=== PATIENT | female | born 1955 | race Caucasian/White ===

== ENCOUNTER 2025-02-03 12:19 | Emergency (ER) | payer OTHER ==
[~2025-02-03] VITALS: Ht 165.1 cm; Wt 91.2 kg
[~2025-02-03 12:19] MED LIST: ATENOLOL-CHLOR1 EAC1 PO; BUPROPION XL150 MG PO; CLONAZEPAM0.5 MG PO
[2025-02-03 12:59] VITALS: RESP 20; TEMP 97.8
[2025-02-03 13:23] VITALS: PULSE 89; RESP 18; O2SAT 96
[2025-02-03 13:24] VITALS: PULSE 87; RESP 18; O2SAT 96
[2025-02-03] MEDS: ALBUTEROL/IPRATROPIUM 3 ML NEB NEB ONE (13:24)
[2025-02-03 14:19] LABS: BASOPHILS % 0.7 % (0.0-1.0); EOSINOPHILS % 18.2 % (0.0-6.0); LYMPHOCYTES % 25.1 % (18.0-39.1); MONOCYTES % 7.7 % (4.4-11.3); NEUTROPHILS % 48.2 % (38.7-80.0); RED CELL DISTRIBUTION WIDTH 13.4 % (11.7-14.4)
[2025-02-03 14:29] LABS: EST GLOMERULAR FILTRATION RATE 53.0 ML/MIN (>=60)
[2025-02-03 15:13] VITALS: PULSE 88
[2025-02-03] MEDS ORDERED: PREDNISONE20 MG PO (15:37)
[2025-02-03] MEDS ORDERED: SYMBICORT 16010.2 GM INH (15:38)
[2025-02-03] MEDS ORDERED: VENTOLIN HFA18 GM INH (15:40)
[2025-02-03 16:00] VITALS: BP 169/79; PULSE 88; TEMP 98.2; O2SAT 95
== END 2025-02-03 16:01 | disposition home or self-care (01) ==
LOC: ER 13:03
DX: J45.909 Unspecified asthma, uncomplicated (principal); F41.9 Anxiety disorder, unspecified; Z86.19 Personal history of other infectious and parasitic diseases; Z98.84 Bariatric surgery status
CPT/HCPCS: 36415; 71046; 80048; 82550; 84484; 85025; 93005; 94640; 94799; 99284